=== PATIENT | female | born 1975 | race Caucasian/White ===

== ENCOUNTER 2022-11-03 08:28 | Day surgery (SDC) | payer MEDICARE, MEDICAID ==
[~2022-11-03 08:28] MED LIST: Lactated Ringers 1,000 ML IV SCH
[2022-11-03] MEDS ORDERED: Propofol 200 MG/20 ML SDV ONE ×2 (09:38→10:17)
[2022-11-03] MEDS ORDERED: fentaNYL 100 MCG/2 ML SDV ONE (09:38)
== END 2022-11-03 11:57 | disposition home or self-care (01) ==
LOC: VM.SDS 08:28
PROVIDERS: ATTEND Family Medicine
DX: D12.3 Benign neoplasm of transverse colon (principal); K63.5 Polyp of colon; K63.89 Other specified diseases of intestine; Q43.8 Other specified congenital malformations of intestine; E03.9 Hypothyroidism, unspecified; F32.A Depression, unspecified; F98.8 Other specified behavioral and emotional disorders with onset usually occurring in childhood and adolescence; G40.019 Localization-related (focal) (partial) idiopathic epilepsy and epileptic syndromes with seizures of localized onset, intractable, without status epilepticus; M85.80 Other specified disorders of bone density and structure, unspecified site; F70 Mild intellectual disabilities; Z79.899 Other long term (current) drug therapy; Z79.890 Hormone replacement therapy
CPT/HCPCS: 00811; 45385; 88305; J2704; J3010; J7120

== ENCOUNTER 2023-03-22 11:02 | Emergency (ER) | payer MEDICARE, MEDICAID ==
[2023-03-22 11:55] LABS: CORONAVIRUS COVID-19 NAA NEGATIVE (NEGATIVE); INFLUENZA A NAA NEGATIVE (NEGATIVE); INFLUENZA B NAA NEGATIVE (NEGATIVE); RESPIRATORY SYNCYTIAL VIR NAA NEGATIVE (NEGATIVE)
== END 2023-03-22 12:04 | disposition home or self-care (01) ==
LOC: VM.ED 11:02
DX: J06.9 Acute upper respiratory infection, unspecified (principal); E03.9 Hypothyroidism, unspecified; Z20.822 Contact with and (suspected) exposure to COVID-19; Z79.899 Other long term (current) drug therapy; Z91.030 Bee allergy status
CPT/HCPCS: 0241U; 87651-QW; 99283